=== PATIENT | male | born 1975 | race Caucasian/White ===

== ENCOUNTER 2019-01-01 17:00 | Inpatient (IN) | payer OTHER ==
[~2019-01-01] VITALS: Ht 188 cm; Wt 85.8 kg
[~2019-01-01 17:00] MED LIST: ASPI-1012 PO; DILT120C89 PO; LISI-613 PO
[2019-01-01] MEDS ORDERED: DILTIAZEM HCL 125 MG/25 ML VIAL IV ONE (17:04)
[2019-01-01] MEDS ORDERED: SODIUM CHLORIDE 0.9% 100 ML IV ONE (17:05)
[2019-01-01 17:26] LABS: BASOPHILS % (AUTO) 0.9 % (0.0-5.0); EOSINOPHILS % (AUTO) 0.7 % (0.0-8.0); HEMATOCRIT 43.3 % (42-54); LYMPHOCYTES % (AUTO) 10.6 % (21.0-51.0); MEAN CORPUSCULAR HEMOGLOBIN 29.8 pg (27.0-33.0); MEAN CORPUSCULAR HGB CONC 33.2 g/dL (32.0-36.0); MEAN CORPUSCULAR VOLUME 89.8 fL (79-99); NEUTROPHILS % (AUTO) 80.8 % (40.0-77.0); NUCLEATED RED BLOOD CELLS 0.1 % (0.0-0.19); PLATELET COUNT (AUTO) 287 K/uL (130-400); RED BLOOD CELL COUNT(AUTO) 4.83 MIL/uL (4.50-6.20); RED CELL DISTRIBUTION WIDTH 14.3 % (11.0-15.5); WHITE BLOOD COUNT (AUTO) 7.3 K/uL (4.8-10.8)
[2019-01-01 17:42] LABS: CREATININE 1.3 mg/dL (0.5-1.5); POTASSIUM 4.4 mmol/L (3.5-5.1)
[2019-01-01 17:53] LABS: B-TYPE NATRIURETIC PEPTIDE 416 pg/mL (0-100)
[2019-01-01 17:54] LABS: ALBUMIN 3.2 g/dL (3.5-5.0); BILIRUBIN,TOTAL 0.9 mg/dL (0.2-1.0); MAGNESIUM 1.6 mg/dL (1.80-2.40); THYROID STIMULATING HORMONE 1.97 uIU/mL (0.36-3.74); TOTAL PROTEIN, SERUM 6.8 g/dL (6.0-8.3)
[2019-01-01] MEDS ORDERED: MAGNESIUM 2GM PREMIX 50ML 50 ML IV ONE (18:32)
[2019-01-01] MEDS ORDERED: MAGNESIUM SULFATE 1 GM in SODIUM CHLORIDE 0.9% 50 ML IV ONE (18:45)
[2019-01-01 19:38] LABS: APPEARANCE,URINE Clear (CLEAR); BILIRUBIN,URINE Negative (NEGATIVE); COLOR,URINE Yellow (YELLOW); GLUCOSE, URINE (UA) Negative (NEGATIVE); KETONES,URINE Negative (NEGATIVE); LEUKOCYTE ESTERASE ,URINE Negative (NEGATIVE); NITRATE,URINE Negative (NEGATIVE); OCCULT BLOOD,URINE Negative (NEGATIVE); PROTEIN,URINE Negative (NEGATIVE); UROBILINOGEN,URINE 0.2 mg/dL (0.2-1.0)
[2019-01-01 19:46] LABS: AMPHET/METH SCREEN,URINE POSITIVE (NEGATIVE); BARBITURATE SCREEN, URINE NEGATIVE (NEGATIVE); BENZODIAZEPINES SCREEN,URINE NEGATIVE (NEGATIVE); CANNABINOID SCREEN,URINE POSITIVE (NEGATIVE); COCAINE SCREEN,URINE POSITIVE (NEGATIVE); OPIATE SCREEN,URINE NEGATIVE (NEGATIVE); PHENCYCLIDINE SCREEN,URINE NEGATIVE (NEGATIVE)
[2019-01-01] MEDS ORDERED: LORAZEPAM 2 MG/ML 1 ML VIAL ONE (20:45)
[2019-01-01] MEDS ORDERED: DIGOXIN 250 MCG/ML 2ML AMP ONE (20:45)
[2019-01-01] MEDS ORDERED: FUROSEMIDE 10 MG/ML 4ML VIAL ONE (20:45)
[2019-01-01] MEDS ORDERED: ENOXAPARIN SODIUM 30 MG/0.3 ML SQ SCH (21:00)
[2019-01-01] MEDS ORDERED: ACETAMINOPHEN 325 MG TAB PO PRN ×2 (21:00)
[2019-01-01] MEDS ORDERED: MORPHINE SULFATE 2 MG/ML 1ML SYG IV PRN (21:00)
[2019-01-01] MEDS ORDERED: DILTIAZEM 125MG/125ML NS IV PRN (21:00)
[2019-01-01] MEDS: ENOXAPARIN SODIUM 100 MG/1 ML SQ SCH (21:00)
[2019-01-01] MEDS: FAMOTIDINE/PF 20 MG/2 ML VIAL IV SCH (21:00)
[2019-01-01] MEDS ORDERED: PHARMACY COMMUNICATION MISC SCH (21:00)
[2019-01-01] MEDS ORDERED: MORPHINE SULFATE 4 MG/1ML SYG IV PRN (21:00)
[2019-01-01] MEDS: FUROSEMIDE 10 MG/ML 2ML VIAL IV SCH (21:00)
[2019-01-01] MEDS ORDERED: LORAZEPAM 2 MG/ML 1 ML VIAL IM PRN (21:00)
[2019-01-01] MEDS ORDERED: ONDANSETRON HCL 4 MG/2 ML VIAL IV PRN (21:00)
[2019-01-01] MEDS ORDERED: ENOXAPARIN SODIUM 100 MG/1 ML SQ ONE (21:32)
[2019-01-01] MEDS ORDERED: FAMOTIDINE/PF 20 MG/2 ML VIAL IV ONE (21:32)
[2019-01-01 22:38] VITALS: BP 150/111
[2019-01-01] MEDS: IPRATROPIUM/ALBUTEROL SULFATE 3 ML SOLUTION IH SCH (23:26)
[2019-01-01 23:48] VITALS: BP 163/117
[2019-01-02] VITALS (7 sets, daily range): BP systolic 104–160; BP diastolic 89–107
--- NOTE | 2019-01-02 03:45 | NUR ---
Edwin Raymond was paged and is aware that patient's heartrate is in the 140s.
[2019-01-02] MEDS: IPRATROPIUM/ALBUTEROL SULFATE 3 ML SOLUTION IH SCH ×3 (07:11→18:19)
[2019-01-02] MEDS ORDERED: LIDOCAINE HCL 2% VISCOUS 15 ML UDCUP PO SCH (07:30)
--- NOTE | 2019-01-02 07:43 | NUR ---
TELE READING: AFLUTTER 130'S. PATIENT REMAINS ON CARDIZEM DRIP AT 20ML/HR. DR. OQUENDO WILL CARDIOVERT PATIENT TODAY ORDERED.
[2019-01-02] MEDS: ENOXAPARIN SODIUM 100 MG/1 ML SQ SCH (09:00)
[2019-01-02] MEDS: FAMOTIDINE/PF 20 MG/2 ML VIAL IV SCH ×2 (09:23→21:50)
[2019-01-02] MEDS: FUROSEMIDE 10 MG/ML 2ML VIAL IV SCH (09:23)
[2019-01-02] MEDS ORDERED: FENTANYL CITRATE PF 50 MCG/1 ML 2ML VIAL IVP SCH (12:15)
[2019-01-02] MEDS ORDERED: MIDAZOLAM HCL 1 MG/ML 2ML VIAL IVP SCH (12:15)
[2019-01-02 12:40] LABS: CREATININE 1.3 mg/dL (0.5-1.5); POTASSIUM 3.6 mmol/L (3.5-5.1)
[2019-01-02] MEDS ORDERED: MAGNESIUM 2GM PREMIX 50ML 50 ML IV ONE (13:01)
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
[2019-01-02] MEDS ORDERED: AMIODARONE HCL 900 MG in DEXTROSE 5%-WATER 500 ML IV SCH (16:30)
[2019-01-02] MEDS ORDERED: LISINOPRIL 10 MG TABLET PO SCH (16:30)
[2019-01-02] MEDS ORDERED: AMIODARONE HCL 150 MG in DEXTROSE 5%-WATER 100 ML IV SCH (16:30)
[2019-01-02] MEDS ORDERED: POTASSIUM CHLORIDE 20 MEQ ERTAB PO PRN (16:45)
[2019-01-02] MEDS ORDERED: POTASSIUM CHLORIDE 10% ELIXIR 20 MEQ/15 ML UDCUP PO PRN (16:45)
[2019-01-02] MEDS ORDERED: POTASSIUM CHLORIDE 20MEQ/100ML 100 ML IV PRN (16:45)
[2019-01-02] MEDS ORDERED: MAGNESIUM 2GM PREMIX 50ML 50 ML IV PRN (16:45)
[2019-01-02] MEDS ORDERED: LIDOCAINE HCL-MPF 1% 2ML VIAL IVP PRN (16:45)
--- NOTE | 2019-01-02 18:09 | NUR ---
TELE UPDATE: SINUS TACHYCARDIA 100-110'S.
[2019-01-02] MEDS: APIXABAN 5 MG TABLET PO SCH (21:50)
[2019-01-03] MEDS: IPRATROPIUM/ALBUTEROL SULFATE 3 ML SOLUTION IH SCH ×5 (00:14→23:10)
[2019-01-03 04:34] VITALS: BP 136/101
[2019-01-03 07:13] VITALS: BP 147/107
[2019-01-03] MEDS: AMIODARONE HCL 200 MG TABLET PO SCH (08:59)
[2019-01-03] MEDS: LISINOPRIL 10 MG TABLET PO SCH (08:59)
[2019-01-03] MEDS: APIXABAN 5 MG TABLET PO SCH ×2 (08:59→20:36)
[2019-01-03 11:20] VITALS: BP 144/101
[2019-01-03] MEDS: DILTIAZEM HCL 60 MG TABLET PO SCH ×3 (12:57→23:44)
[2019-01-03 15:30] VITALS: BP 134/91
[2019-01-03 19:39] VITALS: BP 140/96
[2019-01-03] MEDS: FAMOTIDINE 20MG TAB 20 MG TAB PO SCH (20:36)
[2019-01-04 00:03] VITALS: BP 149/96
[2019-01-04 04:04] VITALS: BP 142/102
[2019-01-04] MEDS: DILTIAZEM HCL 60 MG TABLET PO SCH (05:47)
[2019-01-04] MEDS: IPRATROPIUM/ALBUTEROL SULFATE 3 ML SOLUTION IH SCH ×2 (07:12→11:16)
[2019-01-04 07:25] VITALS: BP 135/96
[2019-01-04] MEDS: APIXABAN 5 MG TABLET PO SCH (09:35)
[2019-01-04] MEDS: FAMOTIDINE 20MG TAB 20 MG TAB PO SCH (09:35)
[2019-01-04] MEDS: LISINOPRIL 10 MG TABLET PO SCH (09:35)
[2019-01-04] MEDS: AMIODARONE HCL 200 MG TABLET PO SCH (09:35)
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
== END 2019-01-04 11:15 | disposition left against medical advice (07) | DRG 310 ==
LOC: EDH 17:00 → EDHIP 17:01 → 2AH 21:40
PROVIDERS: ADMIT Internal Medicine; ATTEND Internal Medicine
PROC: 5A2204Z Restoration of Cardiac Rhythm, Single (ICD-10-PCS; principal; 2019-01-02)
DX: I48.92 Unspecified atrial flutter (principal); I11.0 Hypertensive heart disease with heart failure; I50.9 Heart failure, unspecified; E83.42 Hypomagnesemia; Z53.21 Procedure and treatment not carried out due to patient leaving prior to being seen by health care provider; F17.210 Nicotine dependence, cigarettes, uncomplicated; I42.9 Cardiomyopathy, unspecified; I48.91 Unspecified atrial fibrillation; I08.1 Rheumatic disorders of both mitral and tricuspid valves; F14.10 Cocaine abuse, uncomplicated; F15.10 Other stimulant abuse, uncomplicated; F12.10 Cannabis abuse, uncomplicated; Z91.14 Patient's other noncompliance with medication regimen; Z71.51 Drug abuse counseling and surveillance of drug abuser
CPT/HCPCS: 36415; 71045; 80048; 80053; 80305; 81003; 82550; 83735; 83880; 84443; 84484; 85025; 92960; 93005; 93306; 93313; 94640; 94664; 99291; G0378; J0282; J1160; J1650; J1940; J2060; J2250; J3010; J3475; J3490; J7060